=== PATIENT | male | born 1965 | race Caucasian/White ===

== ENCOUNTER 2019-07-21 12:40 | Day surgery (SDC) | payer BC, SELFPAY ==
[2019-07-20 13:44] VITALS: BMI 25.7
[2019-07-21 13:00] VITALS: BP 130/82; PULSE 69; RESP 18; TEMP 36.6; O2SAT 99
--- NOTE | 2019-07-21 13:07 | FL_ITS ---
PROCEDURE: FL ERCP CLINICAL INDICATION: elevated liver enzymes Primary sclerosing cholangitis COMPARISON: FL ERCP from 05/25/2019 FINDINGS: Fluoroscopy time: 44 seconds Multiple images submitted during the ERCP. A biliary stent was in place initially. Contrast is injected into the common bile duct showing diffuse irregular shaggy appearance of the common bile duct without significant dilatation. No significant stenosis evident. There was some beading of the common bile duct distally pancreatic duct was not cannulated. There are some filling defects noted in the mid aspect of the common bile duct medially which may only represent irregularity of the mucosa. Cannot exclude small retained duct stones. Persistent filling defect is noted distally which could also be due to small stone or debris. The gallbladder was not opacified. IMPRESSION: Abnormal appearance of the common bile duct with somewhat irregular shaggy appearance with some beading distally in keeping with patient's diagnosis primaries sclerosing cholangitis. Please see above for detail Dictated by: Cornelio Cox MD 07/21/2019 20:32 Electronically signed by Cornelio Cox MD in [place] 07/21/2019 20:32
--- NOTE | 2019-07-21 14:05 | P.PN_ITS ---
[facility] Anesthesia Checklist - Patient Identification Patient Identification: Arm Band, Verbal (Name & ) - Structural Data Admitted From: Home Planned Operative Procedure/s: ercp Consent for Planned Operative Procedure(s) Verified: Yes Verified Documents: History and Physical - NPO Status Verified Time NPO: 00:00 - Additional verifications Patient : No Anesthesia Reactions: No Hx Blood Transfusions: No Blood Transfusion Reaction: No Cephalosporin Allergy: No Previous Colonoscopy: Yes - Cardiovascular Assessment Heart Sounds: S1 & S2 Pulse Strength: Baseline Pulse Rhythm: Regular Peripheral Edema: No - Airway Assessment C-Spine Mobility Assessed: Yes TMJ Mobility Assessed: Yes Dentition: Good Dentition - Neurological Assessment Level of Consciousness: Awake, Alert, Appropriate Hx Seizures: No Numbness or tingling in extremities: No - Anesthesia Plan Anesthesia Risk discussed: Yes Anesthesia Plan: Verified ASA Class: I Anesthesia Type: MAC [facility] History I have reviewed the patient's past medical history: Yes Medical History: Reports:: Cancer (colon) Denies:: Diabetes Mellitus Type 1, Diabetes Mellitus Type 2, Internal Pacemaker, MRSA, Seizures *Have you ever received a pneumonia vaccine?: No *Have you received a flu vaccine this season?: Yes Other Medical History: Denies: Blood Transfusion Reaction Anesthesia experience/problems:: none Other Surgeries: No: Pacemaker Amputation: No Fractures: Yes - *Social History Smoking Status: Never smoker Alcohol Intake: never Alcohol Intake Frequency:: a few times a month Substance Use Type: other *Occupational Status:: employed Housing: house Household Members: spouse *Travel in the last 8 weeks: None Family Hx:: No significant family history
--- NOTE | 2019-07-21 14:35 | HMH.PROC ---
[facility] Procedure Note Procedure Note:: ERCP procedure Report: Endoscopic retrograde cholangiopancreatography with stent removal Endoscopist: Say Ureña II, MD Referring Physician: Israel Callahan MD ([facility] General surgery)/Lennox Berumen MD ([place]) Date of Procedure: July 21, 2019 Equipment: Olympus 180 side viewing endoscope duodenoscope Sedation: MAC sedation Indication: Mr. Donnelly is a 54-year-old gentleman with a history of primary sclerosing cholangitis with positive p-ANCA. The patient has had complete proctocolectomy with J-pouch in 2008. The patient had developed some jaundice in mid May with a total bilirubin of 6.9. His CA-19-9 was 228. His MRCP on May 22, 2019 showed some gallbladder wall thickening but no biliary ductal dilation. He had ERCP on May 25, 2019 and there was intra-and extrahepatic biliary involvement with a dominant common hepatic duct stricture that was 2 cm. Brushings and biopsies of this were benign. A 10 Marshallese 9 cm straight [place] stent was deployed across the stricture. The patient has had complete resolution of his symptoms. His alkaline phosphatase declined from 356 to 220 over 4 weeks. His total bilirubin on 06/23/2019 was 1.4 (from 6.9). The patient has no complaints and is here today for stent removal. The patient has seen Dr. Israel Callahan at the [facility] because of the inherent risk of gallbladder cancer in persons with PSC especially with imaging abnormalities of the gallbladder. The patient was subsequently referred to hepatology/hepatic (transplant) surgery but has not had an initial consultation yet. The patient reports no fever, abdominal pain, acholic stools or jaundice. Procedure: Prior to the procedure, a history and physical exam was performed, and patient's medications and allergies were reviewed. The risks, benefits and alternatives of the sedation and procedure were discussed with the patient. All questions were answered and informed consent was obtained. The patient was brought to the fluoroscopic radiology room. Patient identification and proposed procedure were verified by the physician and the nurse. The patient was placed in a swimmer's position between left lateral decubitus and prone position and the scope was passed under direct vision. Throughout the procedure, the patient's blood pressure, pulse, and oxygen saturations were monitored continuously. The ERCP was accomplished without difficulty. The patient tolerated the procedure well. Findings: The side-viewing duodenoscope was passed directly into the upper esophagus and advanced to the second portion of the duodenum. The stent was identified in its proper position. Fluoroscopy showed that this was in place in the biliary system. The stent was then removed using a cold snare. This was removed via the oropharynx with the scope. Next, the scope was reintroduced and advanced to the second portion of the duodenum. The common bile duct was selectively cannulated with the guidewire and cannula. The cholangiogram did show a beading or chain [place] lakes appearance to the proximal CBD, common hepatic duct and into the intrahepatic biliary system. The prior dominant stricture was more widely patent then had been identified at time of prior ERCP 2 months ago. Brushings were not performed. There did not appear to be need for any further dilation or stent placement. The procedure was then ended. The pancreatic duct was not cannulated intentionally. Injection of contrast into the biliary system failed to result in visualization of the gallbladder. Impression: 1. Primary sclerosing cholangitis with resolution of dominant stricture after deployment of 10 Marshallese stent 8 weeks ago (involvement of intra-and extrahepatic biliary system with dominant stricture in the common hepatic duct) Plan: The patient does not have significant hepatic fibrosis but I will plan to do a FibroScan to assess mor
[2019-07-21 15:20] VITALS: BP 127/70; PULSE 58; RESP 20; TEMP 36.6; O2SAT 97
[2019-07-21 15:30] VITALS: BP 140/90; PULSE 60; RESP 20; O2SAT 98
[2019-07-21 15:40] VITALS: BP 111/61; PULSE 56; RESP 18; O2SAT 99
[2019-07-21 15:50] VITALS: BP 115/64; PULSE 58; RESP 18; O2SAT 99
[2019-07-21 16:20] VITALS: BP 127/70; PULSE 60; RESP 20; O2SAT 98
== END 2019-07-21 16:20 | disposition home or self-care (01) ==
LOC: OUTP 12:41
PROVIDERS: PCP Family Medicine; Visit Provider Internal Medicine Gastroenterology
PROC: (CPT 43275; principal; 2019-07-21 13:30)
DX: K83.01 Primary sclerosing cholangitis (principal); R17 Unspecified jaundice; I10 Essential (primary) hypertension; E11.9 Type 2 diabetes mellitus without complications; Z86.79 Personal history of other diseases of the circulatory system; Z85.9 Personal history of malignant neoplasm, unspecified
CPT/HCPCS: 43275; 74330; J2704